=== PATIENT | male | born 1990 | race African-American/Black ===

== ENCOUNTER 2018-03-29 15:54 | Emergency (ER) | payer MEDICAID ==
[~2018-03-29] VITALS: Ht 172.7 cm; Wt 68.2 kg
[2018-03-29] MEDS ORDERED: ELVI1TAB3 PO (16:09)
[2018-03-29 19:31] VITALS: BP 132/80
== END 2018-03-29 19:42 | disposition home or self-care (01) ==
LOC: EMS 15:55
DX: B37.0 Candidal stomatitis (principal); G62.9 Polyneuropathy, unspecified
CPT/HCPCS: 99283